=== PATIENT | male | born 1975 | race Caucasian/White ===

== ENCOUNTER 2018-07-02 21:29 | Emergency (ER) | payer SELFPAY ==
[2018-07-02 21:35] VITALS: BP 156/90; PULSE 71; TEMP 98.3; BMI 32.8
[2018-07-02] MEDS ORDERED: IBUPROFEN 600 MG TABLET (FP) PO ONE ×2 (21:51→21:52)
[2018-07-02] MEDS ORDERED: AMOXICILLIN 250 MG CAPSULE ONE ×2 (21:52→21:53)
[2018-07-02] MEDS ORDERED: AMOXICILLIN 250 MG CAPSULE PO ONE (21:52)
--- NOTE | 2018-07-02 21:55 | PDOC ---
History of Present Illness - General Chief Complaint: Toothache Stated Complaint: TOOTHACHE Time Seen by Provider: 07/02/18 21:48 - History of Present Illness Initial Comments: 07/02/18 21:52 43-year-old male presents for evaluation of toothache times one month. He has no systemic symptoms Past History - Past Medical History Allergies/Adverse Reactions: Allergies Allergy/AdvReac Type Severity Reaction Status Date / Time No Known Allergies Allergy Verified 07/02/18 21:35 Home Medications: Ambulatory Orders Amoxicillin - [Amoxicillin 875mg Tablet -] 875 mg PO BID #14 tab 07/02/18 Ibuprofen 200 mg PO ASDIR 07/02/18 Ibuprofen [Motrin -] 600 mg PO TID #30 tablet 07/02/18 COPD: No - Surgical History Appendectomy: Yes - Suicide/Smoking/Psychosocial Hx Smoking History: Never smoked Review of Systems - Review of Systems HEENTM: Yes: Dental Problems *Physical Exam - Vital Signs Last Vital Signs Temp Pulse Resp BP Pulse Ox 98.3 F 71 18 156/90 98 07/02/18 21:32 07/02/18 21:32 07/02/18 21:32 07/02/18 21:32 07/02/18 21:32 - Physical Exam Comments: 07/02/18 21:53 HEAD: NC/AT NOSE: No d/c THROAT: Moist mucous membrances, oral pharanx clear, uvula midline, normal dental exam no areas of fluctuance tenderness about the right lower jaw posterior aspect MS: Full ROM in all joints without edema NEUROLOGIC: No gross sensory or motor deficits, NVID SKIN: Normal color and temperature no lesions or rashes *DC/Admit/Observation/Transfer Diagnosis at time of Disposition: Toothache - Discharge Dispostion Disposition: HOME Condition at time of disposition: Stable - Prescriptions Prescriptions: Amoxicillin - [Amoxicillin 875mg Tablet -] 875 mg PO BID #14 tab Ibuprofen [Motrin -] 600 mg PO TID #30 tablet - Referrals [facility]errals: [facility] [[facility]] - Patient Instructions Printed Discharge Instructions: DI for Dental Pain Additional Instructions: Return to the emergency room should symptoms persist take the antibiotics as directed and finish the entire course as well as the pain medication and given you. Motrin is one tablet 3 times a day with food discontinue the medication at the bothers her stomach. If he anything on top of that you may take Tylenol as directed. Follow up with urgent care [facility] tomorrow as we discussed - Post Discharge Activity
== END 2018-07-02 22:06 | disposition home or self-care (01) ==
LOC: JERFT 21:29
DX: K08.89 Other specified disorders of teeth and supporting structures (principal)
CPT/HCPCS: 99281-25